=== PATIENT | female | born 1985 | race Hispanic/Latino ===

== ENCOUNTER 2020-01-16 23:22 | Outpatient (CLI) | payer OTHER ==
[2020-01-16 23:36] VITALS: BP 133/79
[2020-01-17] MEDS ORDERED: ACETAMINOPHEN 500 MG TAB PO ONE (01:00)
[2020-01-17] MEDS ORDERED: LACTATED RINGERS 1,000 ML IV SCH (01:00)
[2020-01-17 01:51] LABS: Bilirubin,Urine NEG (Negative); Blood,Urine SM (Negative); Color,Urine Yellow (Yellow); Protein,Urine <15 mg/dL mg/dL (Negative); Urobilinogen,Urine < 2.0 mg/dL (<2.0)
== END 2020-01-17 02:35 | disposition home or self-care (01) ==
LOC: TRG 23:22 → APU 23:24 → TRG 01-17 02:35
PROVIDERS: ATTEND Obstetrics & Gynecology
DX: O47.1 False labor at or after 37 completed weeks of gestation (principal); Z3A.37 37 weeks gestation of pregnancy
CPT/HCPCS: 81001; 87086

== ENCOUNTER 2020-01-19 03:38 | Outpatient (CLI) | payer OTHER ==
[2020-01-19] MEDS ORDERED: LACTATED RINGERS 1,000 ML ONE (04:16)
[2020-01-19] MEDS ORDERED: LACTATED RINGERS 1,000 ML IV ONE (04:29)
[2020-01-19 04:36] VITALS: BP 127/91
[2020-01-19 05:05] LABS: Bacteria,Urine 1+ /HPF (Negative); Bilirubin,Urine NEG (Negative); Blood,Urine LG (Negative); Color,Urine Yellow (Yellow); Protein,Urine <15 mg/dL mg/dL (Negative); Urobilinogen,Urine < 2.0 mg/dL (<2.0)
--- NOTE | 2020-01-19 05:26 | Ultrasound Report ---
ULTRASOUND BIOPHYSICAL PROFILE INDICATION / CLINICAL INFORMATION: vaginal bleeding. COMPARISON: None available. FINDINGS: BREATHING MOVEMENT = 2 GROSS BODY MOVEMENT = 2 TONE = 2 QUALITATIVE AMNIOTIC FLUID VOLUME = 2 TOTAL BIOPHYSICAL SCORE = 8/8 AMNIOTIC FLUID INDEX (cm) = 10.1 PRESENTATION: Cephalic. HEART RATE (beats per minute): 127 Several hypoechoic areas are present within the placenta which may represent small placental lakes. IMPRESSION: 1. biophysical profile = 8/8 2. No convincing evidence of placental abruption. Signer Name: Jason Herrera MD Signed: 01/19/2020 5:22 AM Workstation Name: [id number]
== END 2020-01-19 05:34 | disposition home or self-care (01) ==
LOC: TRG 03:38 → APU 03:54 → TRG 05:34
PROVIDERS: ATTEND Obstetrics & Gynecology
DX: O26.853 Spotting complicating pregnancy, third trimester (principal); O99.333 Smoking (tobacco) complicating pregnancy, third trimester; F17.210 Nicotine dependence, cigarettes, uncomplicated; Z3A.38 38 weeks gestation of pregnancy
CPT/HCPCS: 59025; 76815; 76819; 81001; 87086; 96360; J7120

== ENCOUNTER 2020-01-21 02:24 | Inpatient (IN) | payer OTHER ==
[2020-01-21] MEDS ORDERED: LACTATED RINGERS 1,000 ML ONE (02:47)
[2020-01-21] MEDS ORDERED: AMPICILLIN/NS 2 GM/100 ML 2 GM/100 ML BAG IV ONE (03:02)
[2020-01-21] MEDS ORDERED: LIDOCAINE (2%) 20 MG/1 ML VIAL 20 ML MDV INFILTRATI ONE (03:02)
[2020-01-21] MEDS ORDERED: ONDANSETRON 4 MG/2 ML INJ IV PRN ×2 (03:02→05:00)
[2020-01-21] MEDS ORDERED: MINERAL OIL 30 ML ORAL LIQD PO PRN (03:02)
[2020-01-21] MEDS ORDERED: TERBUTALINE 1 MG/1 ML INJ SUB-Q PRN (03:02)
[2020-01-21] MEDS ORDERED: ePHEDrine SULFATE 50 MG/1 ML INJ IV PRN (03:02)
[2020-01-21] MEDS ORDERED: fentaNYL 100 MCG/2 ML INJ IV PRN (03:02)
[2020-01-21] MEDS: LACTATED RINGERS 1,000 ML IV SCH ×2 (03:17→03:52)
[2020-01-21 03:48] LABS: Hematocrit 33.1 % (30.3-42.9); Hemoglobin 11.7 gm/dl (10.1-14.3); Mean Corpuscular HGB Conc 35 % (30-34); Mean Corpuscular Volume 87 fl (79-97); Platelet Count 230 K/mm3 (140-440); Red Cell Distribution Width 14.5 % (13.2-15.2)
[2020-01-21] MEDS ORDERED: OXYTOCIN DRIP 30 UNITS/500 ML BAG IV SCH (04:00)
--- NOTE | 2020-01-21 04:52 | History and Physical Report ---
History of Present Illness Date of examination: 01/21/20 Date of admission: 01/21/20 03:03 Chief complaint: leakage of fluid History of present illness: 34-year-old -0-0-1 at 38+3 weeks who presents in active labor with advanced cervical dilatation and rupture membranes. The patient initiated her OB care at 10 weeks however she had a lapse in care from 24 to 33 weeks and was not seen any further after 33 weeks estimated gestational age. Her GBS status is unknown. Her course is complicated by an abnormal 1 hour GTT, history of genital herpes which she denies any recent prodrome, advanced maternal age, and the left pyelectasis. Past History Past Medical History: no pertinent history Past Surgical History: no surgical history Social history: single - Obstetrical History Expected Date of Delivery: 02/01/20 Actual Gestation: 38 Week(s) 3 Day(s) : 2 Para: 1 Hx # Term Pregnancies: 1 Number of Pregnancies: 0 Spontaneous Abortions: 0 Induced : 0 Number of Living Children: 1 Medications and Allergies Allergies Allergy/AdvReac Type Severity Reaction Status Date / Time No Known Allergies Allergy Verified 01/16/20 23:46 Home Medications Medication Instructions Recorded Confirmed Last Taken Type Omeprazole 20 mg pe PO DAILY 01/16/20 01/16/20 01/16/20 16:00 History 20 MG Active Meds: Active Medications Ephedrine Sulfate (Ephedrine Sulfate) 10 mg IV Q2M PRN PRN Reason: Hypotension Fentanyl (Sublimaze) 100 mcg IV Q2H PRN PRN Reason: Pain,Severe (7-10) LABOR PAIN Last Admin: 01/21/20 03:17 Dose: 100 mcg Documented by: Lactated Ringer's (Lactated Ringers) 1,000 mls @ 125 mls/hr IV DIRECT TIANA Last Admin: 01/21/20 03:52 Dose: 125 mls/hr Documented by: Oxytocin/Sodium Chloride (Pitocin/Ns 30 Unit/500ml) 30 units in 500 mls @ 40 mls/hr IV TITR TIANA; Protocol Mineral Oil (Mineral Oil) 30 ml PO QHS PRN PRN Reason: Constipation Ondansetron HCl (Zofran) 4 mg IV Q8H PRN PRN Reason: Nausea And Vomiting Terbutaline Sulfate (Brethine) 0.25 mg SUB-Q ONCE PRN PRN Reason: Hyperstimulation/Hypertonicity Review of Systems All systems: negative Genitourinary: contractions - Vital Signs Vital signs: Vital Signs Temp Pulse Resp BP Pulse Ox 97.9 F 86 21 137/66 97 01/21/20 03:05 01/21/20 03:05 01/21/20 03:05 01/21/20 03:05 01/21/20 03:05 Temp Pulse Resp BP Pulse Ox 97.9 F 81 21 137/66 99 01/21/20 03:05 01/21/20 04:48 01/21/20 03:05 01/21/20 03:05 01/21/20 04:48 - Physical Exam Breasts: Positive: deferred Cardiovascular: Regular rate Lungs: Positive: Clear to auscultation Abdomen: Positive: normal appearance Results Result Diagrams: 01/21/20 02:50 Abnormal lab results 01/21/20 Range/Units 02:50 MCHC 35 H (30-34) % All other labs normal. Assessment and Plan - Patient Problems (1) Active labor at term Current Visit: Yes Status: Acute Plan to address problem: Admit to labor and delivery and initiate antibiotics (2) Insufficient care Current Visit: Yes Status: Acute
--- NOTE | 2020-01-21 04:57 | Procedure Note ---
OB Delivery Note - Delivery Date of Delivery: 01/21/20 Surgeon: ORAL HI Estimated blood loss: 200cc - Vaginal Delivery presentation: vertex Delivery position: OA Delivery monitor: external FHT, external uterine Route of delivery: Delivery placenta: spontaneous Delivery cord: nuchal cord, 3 umbilical vessels Episiotomy: none Delivery laceration: 1st degree Delivery repair: vicryl Anesthesia: epidural Delivery comments: Delivery was attended by the CNM lead python developer. The patient had a spontaneous vaginal delivery of a liveborn male with apgars of 8/8. After delivery of the head, a nuchal cord x 1 was manually reduced. The shoulders delivered without difficulty. The cord was clamped and cut. The placenta delivered spontaneously intact with 3VC. First degree laceration repaired with vicryl. Weight 8lbs 0oz. Ebl 200ml. - A at 1 minute: 8 at 5 minutes: 8 Gender: Male (weight 8lbs 0oz)
[2020-01-21] MEDS ORDERED: PROMETHAZINE 25 MG RECT SUPP PR PRN (05:00)
[2020-01-21] MEDS ORDERED: WITCH HAZEL/ GLYCERIN PAD TP PRN (05:00)
[2020-01-21] MEDS ORDERED: ACETAMINOPHEN 325 MG TAB PO PRN (05:00)
[2020-01-21] MEDS ORDERED: PROMETHAZINE 25 MG TAB PO PRN (05:00)
[2020-01-21] MEDS ORDERED: MAGNESIUM HYDROXIDE (MOM) ORAL LIQD UDC PO PRN (05:00)
[2020-01-21] MEDS ORDERED: diphenhydrAMINE 25 MG CAP PO PRN (05:00)
[2020-01-21] MEDS ORDERED: LANOLIN/ZINC/DIMETHICONE (LANSINOH) 7 GM TP PRN (05:00)
[2020-01-21] MEDS ORDERED: OXYTOCIN 10 UNIT/1 ML INJ IM ONE (05:31)
[2020-01-21] MEDS: IBUPROFEN 600 MG TAB PO SCH ×3 (05:48→18:09)
[2020-01-21] MEDS: HYDROcodone/ACETAMINOPHEN 5-325 MG TAB PO PRN ×2 (10:20→19:41)
[2020-01-21 16:50] LABS: Hemoglobin 10.8 gm/dl (10.1-14.3)
[2020-01-22] MEDS: HYDROcodone/ACETAMINOPHEN 5-325 MG TAB PO PRN ×3 (01:50→21:49)
[2020-01-22] MEDS: IBUPROFEN 600 MG TAB PO SCH ×4 (05:50→19:30)
--- NOTE | 2020-01-22 07:35 | Progress Note ---
Assessment and Plan A: PPD#1 s/p at term AMA Obesity Insufficient Care GBS unknown, inadequately treated P: Routine care Anticipate discharge tomorrow Subjective - Subjective Date of service: 01/22/20 Principal diagnosis: s/p at term, Insufficient PNC, AMA, Obesity Interval history: Pt reports passing a clot overnight after lying for a few hours, but since then her lochia has been decreasing. Patient reports: appetite normal, voiding normally, pain well controlled, ambulating normally [place]: doing well Objective - Vital Signs Latest vital signs: Vital Signs Temp Pulse Resp BP BP Pulse Ox 01/22/20 00:30 98.6 F 69 18 114/78 01/21/20 20:21 98.0 F 78 18 135/83 97 01/21/20 16:30 96.4 F L 76 18 132/66 96 01/21/20 11:57 98.6 F 76 18 101/60 98 01/21/20 08:40 98.6 F 68 20 130/67 92 Intake and Output 01/21/20 01/22/20 01/22/20 22:59 06:59 14:59 Intake Total 600 Balance 600 Intake: Intake, Free Water 600 Other: # Voids Void 1 - Exam Breasts: Present: deferred Abdomen: Present: soft (obese) Uterus: Present: fundal height at umbilicus Extremities: Present: edema (trace)
--- NOTE | 2020-01-22 07:39 | Discharge Summary ---
Providers - Providers Date of Admission: 01/21/20 03:03 Date of discharge: 01/23/20 Attending physician: ORAL HI Primary care physician: ORAL HI Hospitalization Reason for admission: active labor Delivery: Procedure details: Please see delivery note Episiotomy: none Laceration: 1st degree Other procedures: none complications: none Discharge diagnosis: IUP at term delivered [place] baby: male Hospital course: Pt was admitted in labor and went on to deliver a viable male via which she tolerated well. Her course was uncomplicated and she met discharge criteria on PPD#2. She will follow up in 4 wks with Leny Pruitt NP. Condition at discharge: Stable Disposition: DC-01 TO HOME OR SELFCARE - Discharge Diagnoses (1) Term of male Status: Acute (2) Obesity Status: Acute Qualifiers: Obesity type: unspecified obesity type Obesity classification: adult class 2 (BMI 35 - 39.9) Serious obesity comorbidity presence: unspecified whether serious comorbidity present Body mass index: BMI 35.0-35.9 Qualified Code(s): E66.9 - Obesity, unspecified; Z68.35 - Body mass index [BMI] 35.0-35.9, adult (3) Active labor at term Status: Acute (4) Insufficient care Status: Acute Plan - Discharge Medications Prescriptions: Ibuprofen [Motrin] 800 mg PO Q8HR PRN #30 tablet PRN Reason: Pain, Moderate (4-6) HYDROcodone/APAP 5-325 [[place] 5/325] 1 each PO Q6HR PRN #10 tablet PRN Reason: Pain - Provider Discharge Summary Activity: routine, no sex for 6 weeks, no heavy lifting 4 weeks, no strenuous exercise Diet: routine Instructions: routine Additional instructions: [] Smoking cessation referral if applicable(refer to patient education folder for contact #) [] Refer to [facility] Booklet Call your doctor immediately for: * Fever > 100.5 * Heavy vaginal bleeding ( >1 pad per hour) * Severe persistent headache * Shortness of breath * Reddened, hot, painful area to leg or breast * Drainage or odor from incision. * Keep incision clean and dry at all times and follow doctor's instructions regarding bathing/showering PLEASE SCHEDULE YOUR SON'S CIRCUMCISION SOON POSSIBLE, BEFORE HE IS ONE MONTH OLD. - Follow up plan Follow up: ORAL HI MD [Primary Care Provider] - 7 Days
[2020-01-23] MEDS: IBUPROFEN 600 MG TAB PO SCH (02:14)
[2020-01-23] MEDS: HYDROcodone/ACETAMINOPHEN 5-325 MG TAB PO PRN (05:14)
[2020-01-23 09:43] VITALS: BP 129/80
== END 2020-01-23 08:45 | disposition home or self-care (01) | DRG 775 ==
LOC: TRG 02:24 → APU 02:25 → LD 03:03 → TRG 03:03 → OB 10:20
PROVIDERS: ADMIT Obstetrics & Gynecology; ATTEND Obstetrics & Gynecology
PROC: 10E0XZZ Delivery of Products of Conception, External Approach (ICD-10-PCS; principal; 2020-01-21)
PROC: 0HQ9XZZ Repair Perineum Skin, External Approach (ICD-10-PCS; 2020-01-21)
PROC: 3E0R3BZ Introduction of Anesthetic Agent into Spinal Canal, Percutaneous Approach (ICD-10-PCS; 2020-01-21)
PROC: 00HU33Z Insertion of Infusion Device into Spinal Canal, Percutaneous Approach (ICD-10-PCS; 2020-01-21)
DX: O69.81X0 Labor and delivery complicated by cord around neck, without compression, not applicable or unspecified (principal); Z3A.38 38 weeks gestation of pregnancy; Z37.0 Single live birth; O70.0 First degree perineal laceration during delivery; O99.214 Obesity complicating childbirth; E66.9 Obesity, unspecified; O09.523 Supervision of elderly multigravida, third trimester
CPT/HCPCS: 36415; 85014; 85018; 85027; 86592; 86850; 86900; 86901; 99406; G0378; J0290; J2590; J3010; J7120; U0003

== ENCOUNTER 2020-12-17 16:22 | Emergency (ER) | payer OTHER ==
[2020-12-17] MEDS ORDERED: dexAMETHasone 20 MG/5 ML VIAL IM ONE (16:50)
[2020-12-17] MEDS ORDERED: KETOROLAC 60 MG/2 ML INJ IM ONE (16:50)
--- NOTE | 2020-12-17 16:57 | Emergency Department Report ---
ED Back Pain/Injury HPI - General Stated Complaint: BACK PAIN - History of Present Illness Initial Comments: Patient is a 35-year-old white female with a history of chronic low back pain with bilateral sciatica who presents to the ED with complaint of acute exacerbation of her chronic low back pain with left-sided sciatica persistently for the last 5 days after lifting at home and twisting her back. Patient states that the pain initially was mild but has continued to get worse every day. Patient states that she has been taking Excedrin migraine medication and ibuprofen 800 mg with no relief. Patient states that the last time she took ibuprofen 800 mg was about 10 hours ago. Patient states that the pain is constant, throbbing, persistent and radiates to the left leg and numbness sensation. Patient denies dysuria, urinary frequency and urgency, chest pain or shortness of breath, vaginal bleeding or vaginal discharge, emetic injury, urinary or bowel incontinence, saddle paresthesia, fall or abdominal pain, fever and chills or nausea and vomiting. MD Complaint: back pain, other (Low back pain that radiates to the left leg) -: Gradual, days(s) (5), year(s) (> 12 years) Similar Symptoms Previously: Yes (chronic low back pain with sciatica) Place: home Radiation: left leg Severity: severe Severity scale (0 -10): 8 Quality: sharp, aching Consistency: constant Improves With: none Worsens With: movement, sitting upright, walking Context: while lifting, turning/twisting Associated Symptoms: denies other symptoms, difficulty walking (due to pain). denies: confusion, weakness, chest pain, numbness, cough, difficulty urinating, diaphoresis, incontinence, fever/chills, constipation, headaches, abdominal pain, loss of appetite, malaise, nausea/vomiting, rash, seizure, shortness of breath, syncope, other Treatments Prior to Arrival: NSAIDS, acetaminophen - Related Data Previous Rx's Medication Instructions Recorded Last Taken Type Naproxen Sodium [Naproxen Sodium 550 mg PO Q12H PRN #30 tablet 12/17/20 Unknown Rx 550mg] predniSONE [Deltasone] 60 mg PO QDAY #15 tab 12/17/20 Unknown Rx tiZANidine [Zanaflex 4mg TAB] 4 mg PO Q8H PRN #30 tablet 12/17/20 Unknown Rx traMADoL [Ultram] 50 mg PO Q6HR PRN #12 tablet 12/17/20 Unknown Rx Allergies Allergy/AdvReac Type Severity Reaction Status Date / Time No Known Allergies Allergy Verified 02/20/20 10:48 ED Review of Systems ROS: Stated complaint: BACK PAIN Other details as noted in HPI Constitutional: denies: chills, fever Eyes: denies: eye pain, eye discharge, vision change ENT: denies: ear pain, throat pain Respiratory: denies: cough, shortness of breath, wheezing Cardiovascular: denies: chest pain, palpitations Endocrine: no symptoms reported Gastrointestinal: denies: abdominal pain, nausea, diarrhea Genitourinary: denies: urgency, dysuria, discharge Musculoskeletal: back pain (lower back pain), arthralgia (left leg numbness and tingling). denies: joint swelling, myalgia Skin: denies: rash, lesions Neurological: denies: headache, weakness, paresthesias Psychiatric: denies: anxiety, depression Hematological/Lymphatic: denies: easy bleeding, easy bruising ED Past Medical Hx - Past Medical History Hx Hypertension: No Hx Diabetes: No Hx Deep Vein Thrombosis: No Hx Renal Disease: No Hx Sickle Cell Disease: No Hx Seizures: No Hx Asthma: No Hx COPD: No Hx HIV: No - Social History Smoking Status: Current Every Day Smoker - Medications Home Medications: Home Medications Medication Instructions Recorded Confirmed Last Taken Type Naproxen Sodium [Naproxen Sodium 550 mg PO Q12H PRN #30 tablet 12/17/20 Unknown Rx 550mg] predniSONE [Deltasone] 60 mg PO QDAY #15 tab 12/17/20 Unknown Rx tiZANidine [Zanaflex 4mg TAB] 4 mg PO Q8H PRN #30 tablet 12/17/20 Unknown Rx traMADoL [Ultram] 50 mg PO Q6HR PRN #12 tablet 12/17/20 Unknown Rx ED Physical Exam - General General appearance: alert, in no apparent distress - Head Head exam: Present: atraumatic, normocephalic, normal inspection - Eye Eye exam: Present: normal appearance, PERRL, EOMI Pupils: Present: normal accommodation - ENT ENT exam: Present: normal exam, normal orophraynx, mucous membranes moist, TM's normal bilaterally, normal external ear exam - Neck Neck exam: Present: normal inspection, full ROM - Respiratory Respiratory exam: Present: normal lung sounds bilaterally. Absent: respiratory distress, wheezes, rales, rhonchi, chest wall tenderness, accessory muscle use, decreased breath sounds, prolonged expiratory - Cardiovascular Cardiovascular Exam: Present: regular rate, normal rhythm, normal heart sounds. Absent: systolic murmur, diastolic murmur, rubs, gallop - GI/Abdominal GI/Abdominal exam: Present: soft, normal bowel sounds. Absent: tenderness, guarding, rebound, hyperactive bowel sounds, hypoactive bowel sounds, organomegaly, mass, bruit - Extremities Exam Extremities exam: Present: normal inspection, full ROM, tenderness (Palpable mild left hip tenderness), normal capillary refill. Absent: pedal edema, calf tenderness - Back Exam Back exam: Present: normal inspection, tenderness (Palpable lumbosacral paraspinal musculoskeletal tenderness; no midline vertebral tenderness), muscle spasm, paraspinal tenderness. Absent: full ROM (Limited range of motion due to pain), CVA tenderness (R), CVA tenderness (L), vertebral tenderness, rash noted - Neurological Exam Neurological exam: Present: alert, oriented X3, CN II-XII intact, normal gait, reflexes normal - Psychiatric Psychiatric exam: Present: normal affect, normal mood - Skin Skin exam: Present: warm, dry, intact, normal color. Absent: rash ED Course Vital Signs 12/17/20 12/17/20 18:30 18:37 Temperature 98.4 F Pulse Rate 86 86 Respiratory 16 Rate Blood Pressure 120/80 120/80 [Right] O2 Sat by Pulse 98 Oximetry ED Medical Decision Making - Medical Decision Making This is a 35-year-old white female with a history of chronic low back pain with bilateral sciatica who presents to the ED with complaint of acute exacerbation of her chronic low back pain with left-sided sciatica persistently for the last 5 days after lifting at home and twisting her back. Patient states that the pain initially was mild but has continued to get worse every day. Patient states that she has been taking Excedrin migraine medication and ibuprofen 800 mg with no relief. Patient states that the last time she took ibuprofen 800 mg was about 10 hours ago. Patient states that the pain is constant, throbbing, persistent and radiates to the left leg and numbness sensation. In the ED, patient is alert and oriented x3 and is not in any distress patient is hemodynamic stable. Patient however appears to be in significant pain during the physical exam. Patient was treated for pain Toradol and Decadron. Urinalysis is unremarkable. On reevaluation, patient's pain is well controlled medications. Patient was discharged home on pain medications and muscle relaxants and advised to follow-up with her primary care physician in 5 to 7 days for reevaluation. Return to the ED immediately if symptoms get worse. - Differential Diagnosis Chronic pain; chronic sciatica; muscle spasm; UTI; muscle strain Critical care attestation.: If time is entered above; I have spent that time in minutes in the direct care of this critically ill patient, excluding procedure time. ED Disposition Clinical Impression: Spasm of muscle of lower back, Strain of muscle, fascia and tendon of lower back, initial encounter Chronic low back pain with left-sided sciatica Qualifiers: Back pain laterality: bilateral Qualified Code(s): M54.42 - Lumbago with sciatica, left side Disposition: HOME / SELF CARE / HOMELESS Is pt being admited?: No Does the pt Need Aspirin: No Condition: Stable Instructions: Muscle Cramps and Spasms, [id number], Sciatica, [id number], Muscle Strain, [id number], Chronic Back Pain, [id number] Additional Instructions: Take medication with food, drink plenty of fluids and follow-up with your primary care physician in 7 to 10 days for reevaluation. Avoid heavy lifting or strenuous physical to reduce 7 to 10 days, and return to the ED immediately if symptoms get worse. Prescriptions: predniSONE [Deltasone] 60 mg PO QDAY #15 tab Naproxen Sodium [Naproxen Sodium 550mg] 550 mg PO Q12H PRN #30 tablet PRN Reason: Severe pain traMADoL [Ultram] 50 mg PO Q6HR PRN #12 tablet PRN Reason: Pain tiZANidine [Zanaflex 4mg TAB] 4 mg PO Q8H PRN #30 tablet PRN Reason: Muscle Spasm Referrals: [facility] [Provider Group] - 7-10 days Time of Disposition: 17:00 Print Language: MOZAMBICAN
[2020-12-17 20:04] LABS: Bilirubin,Urine NEG (Negative); Blood,Urine SM (Negative); Color,Urine Straw (Yellow); Mucus,Urine FEW /HPF; Protein,Urine <15 mg/dL mg/dL (Negative); Urobilinogen,Urine < 2.0 mg/dL (<2.0)
[2020-12-17 20:33] LABS: HCG Qualitative,Urine Negative (Negative)
[2020-12-17 21:09] VITALS: BP 122/83
== END 2020-12-17 19:30 | disposition home or self-care (01) ==
LOC: ED 16:22
DX: S39.012A Strain of muscle, fascia and tendon of lower back, initial encounter (principal); M54.42 Lumbago with sciatica, left side; M62.830 Muscle spasm of back; F17.200 Nicotine dependence, unspecified, uncomplicated; X50.1XXA Overexertion from prolonged static or awkward postures, initial encounter; Y93.89 Activity, other specified; Y92.89 Other specified places as the place of occurrence of the external cause; Y99.8 Other external cause status
CPT/HCPCS: 81001; 81025; 96372; 99283; J1100; J1885

== ENCOUNTER 2021-03-24 14:24 | Emergency (ER) | payer OTHER | END 2021-03-24 16:00 | disposition left against medical advice (07) | LOC: ED 14:24 | DX: M54.30 Sciatica, unspecified side (principal); Z53.21 Procedure and treatment not carried out due to patient leaving prior to being seen by health care provider ==